=== PATIENT | female | born 1965 | race Caucasian/White ===

== ENCOUNTER 2018-02-05 17:37 | Inpatient (IN) | payer OTHER ==
[~2018-02-05] VITALS: Ht 160 cm; Wt 110.2 kg
[2018-02-05] MEDS ORDERED: Z GUARD REMEDY PASTE 57 GM TUBE TOP PRN (17:45)
[2018-02-05] MEDS ORDERED: ASPI-612 PO (18:04)
[2018-02-05] MEDS ORDERED: ACET-2154 PO (18:04)
[2018-02-05] MEDS ORDERED: CITA20TA19 PO (18:04)
[2018-02-05] MEDS ORDERED: ATOR20TA PO (18:04)
[2018-02-05] MEDS ORDERED: BISA-79 PO (18:04)
[2018-02-05] MEDS ORDERED: DOCU100C36 PO (18:04)
[2018-02-05] MEDS ORDERED: QUET50TA PO (18:04)
[2018-02-05] MEDS ORDERED: MAG355OR18 PO (18:04)
[2018-02-05] MEDS ORDERED: FLUT16SP NS (18:04)
[2018-02-05] MEDS ORDERED: OXYC5TAB3 PO (18:04)
[2018-02-05] MEDS ORDERED: OMEP20CA10 PO (18:04)
[2018-02-05] MEDS ORDERED: TRAZ-214 PO (18:04)
--- NOTE | 2018-02-05 18:08 | NUR ---
Patient came at around 5pm via stretcher with 2 EMT in stable condition. Diagnosis of Left knee arthroplasty. On cardiac diet. with left knee wilber. no redness noted. MD Anderson and MD Taylor made aware. not in distress. On oxygen via nasal cannula at 2 lpm. SPO2 -96% will continue monitor
--- NOTE | 2018-02-05 19:50 | NUR ---
Patient refuse test, verbalize 2 years no menstrual period.
[2018-02-05 19:53] VITALS: BP 137/79
[2018-02-05] MEDS: OXYCODONE HCL 5 MG TABLET PO PRN (22:05)
[2018-02-05] MEDS ORDERED: MAG HYDROX/AL HYDROX/SIMETH 30 ML LIQUID UDC PO PRN (23:00)
[2018-02-05] MEDS ORDERED: BISACODYL 5 MG TABLET.DR PO PRN ×2 (23:00)
[2018-02-05] MEDS: QUETIAPINE FUMARATE 25 MG TABLET PO SCH (23:05)
[2018-02-06 06:38] VITALS: BP 133/77
--- NOTE | 2018-02-06 06:51 | NUR ---
PT RESTING COMFORTABLY ON BED, AAOX3, ON O2 2L VIA NC, TOLERATED WELL. DENIES ANY SOB OR DISCOMFORT. ALL NEEDS ANTICIPATED AND ATTENDED. SAFE ENVIRONMENT MAINTAINED AT ALL TIMES, CALL LOZANO WITHIN REACH.
[2018-02-06 07:59] LABS: BASOPHILS # (AUTO) 0.1 K/uL (0.0-8.0); BASOPHILS % (AUTO) 0.9 % (0.0-2.0); EOSINOPHILS # (AUTO) 0.2 K/uL (0.0-0.7); EOSINOPHILS % (AUTO) 2.2 % (0.0-7.0); HEMATOCRIT 38.6 % (31.2-41.9); HEMOGLOBIN 13.3 g/dL (10.9-14.3); MEAN CORPUSCULAR HEMOGLOBIN 31.7 uug (24.7-32.8); MEAN CORPUSCULAR HGB CONC 34 g/dL (32.3-35.6); MEAN CORPUSCULAR VOLUME 92.2 fL (75.5-95.3); MONOCYTES # (AUTO) 0.6 K/uL (2.0-10.0); MONOCYTES % (AUTO) 9.3 % (0.0-11.0); NEUTROPHILS # (AUTO) 5.1 K/uL (1.8-8.9); NEUTROPHILS % (AUTO) 73.6 % (38.5-71.5); PLATELET COUNT (AUTO) 176 K/uL (179-408); RED BLOOD CELL COUNT(AUTO) 4.18 MIL/uL (3.63-4.92); WHITE BLOOD COUNT (AUTO) 6.9 K/uL (3.8-11.8)
[2018-02-06 08:14] LABS: BILIRUBIN,TOTAL 0.9 mg/dL (0.2-1.0); CREATININE 0.6 mg/dL (0.6-1.3); MAGNESIUM 1.9 mg/dL (1.8-2.4); POTASSIUM 4.1 mmol/L (3.5-5.1); TOTAL PROTEIN, SERUM 7.7 g/dL (6.4-8.2)
[2018-02-06 08:17] LABS: THYROID STIMULATING HORMONE 1.485 mIU/mL (0.358-3.740)
[2018-02-06] MEDS: ACETAMINOPHEN 325 MG TABLET PO PRN ×2 (08:29→21:08)
[2018-02-06] MEDS: ASPIRIN 325 MG TABLET PO SCH (08:29)
[2018-02-06] MEDS: CITALOPRAM 20 MG TABLET PO SCH (08:29)
[2018-02-06] MEDS: DOCUSATE SODIUM 100 MG CAPSULE PO SCH ×2 (08:29→16:58)
[2018-02-06] MEDS: OXYCODONE HCL 5 MG TABLET PO PRN ×3 (08:41→22:02)
[2018-02-06] MEDS: FLUTICASONE PROP NASAL SPRAY 16 GM BOTTLE NS SCH ×2 (08:44→21:02)
[2018-02-06] MEDS: PANTOPRAZOLE SODIUM 40 MG TABLET.DR PO SCH (12:48)
[2018-02-06 16:31] VITALS: BP 126/78
--- NOTE | 2018-02-06 17:45 | NUR ---
Patient evaluate by therapy for new admission care. Continue on pain management with good effect for left knee arthroplasty surgery. not in distress. oxycodone IR 5 mg give at around 5pm. will continue monitor
[2018-02-06 19:53] VITALS: BP 121/68
[2018-02-06] MEDS: ATORVASTATIN 20 MG TABLET PO SCH (21:02)
[2018-02-06] MEDS: QUETIAPINE FUMARATE 25 MG TABLET PO SCH (21:02)
[2018-02-06] MEDS: TRAZODONE 100 MG TABLET PO PRN (21:08)
--- NOTE | 2018-02-06 21:08 | NUR ---
given Tylenol and desyrel per patient request ,escorted to the bathroom using walker ,left leg with brace, patient voided tolerated activity back to bed .
[2018-02-07] MEDS: ACETAMINOPHEN 325 MG TABLET PO PRN ×2 (05:42→17:14)
[2018-02-07 06:00] VITALS: BP 126/75
[2018-02-07] MEDS: PANTOPRAZOLE SODIUM 40 MG TABLET.DR PO SCH (06:11)
[2018-02-07 08:00] VITALS: BP 132/78
[2018-02-07] MEDS: OXYCODONE HCL 5 MG TABLET PO PRN ×3 (09:00→20:27)
[2018-02-07] MEDS: ASPIRIN 325 MG TABLET PO SCH (09:01)
[2018-02-07] MEDS: FLUTICASONE PROP NASAL SPRAY 16 GM BOTTLE NS SCH ×2 (09:01→20:22)
[2018-02-07] MEDS: DOCUSATE SODIUM 100 MG CAPSULE PO SCH ×2 (09:02→16:26)
[2018-02-07] MEDS: CITALOPRAM 20 MG TABLET PO SCH (09:02)
[2018-02-07 16:25] VITALS: BP 122/75
--- NOTE | 2018-02-07 20:00 | NUR ---
Received pt aao x 4 in bed, in no acute distress. Pt requesting pain medication and sleeping pill for tonight. Made aware of plan of care. Left knee warm to touch, wrapped and elevated via pillows. Safe environment implemented.
[2018-02-07] MEDS: ATORVASTATIN 20 MG TABLET PO SCH (20:22)
[2018-02-07] MEDS: QUETIAPINE FUMARATE 25 MG TABLET PO SCH (20:23)
[2018-02-07 20:40] VITALS: BP 129/67
[2018-02-07] MEDS: TRAZODONE 100 MG TABLET PO PRN (21:20)
[2018-02-08 05:30] VITALS: BP 146/70
[2018-02-08] MEDS: PANTOPRAZOLE SODIUM 40 MG TABLET.DR PO SCH (06:00)
[2018-02-08] MEDS: ACETAMINOPHEN 325 MG TABLET PO PRN ×2 (06:00→18:12)
--- NOTE | 2018-02-08 06:46 | NUR ---
Pain management provided as ordered. Pt stable and in no distress at this time.
--- NOTE | 2018-02-08 07:05 | NUR ---
Nurse notes; received patient awake, alert and oriented lying on bed on a high kelley's position. no SOB or distress. Assessed for pain. safety precautions observed. Informed of the hourly rounding. Encouraged to use call light whenever assistance is needed for safety. call light and telephone within reach. Will continue to monitor.
[2018-02-08 08:00] VITALS: BP 125/70
[2018-02-08] MEDS: CITALOPRAM 20 MG TABLET PO SCH (08:30)
[2018-02-08] MEDS: ASPIRIN 325 MG TABLET PO SCH (08:31)
[2018-02-08] MEDS: DOCUSATE SODIUM 100 MG CAPSULE PO SCH ×2 (08:31→16:13)
[2018-02-08] MEDS: OXYCODONE HCL 5 MG TABLET PO PRN ×3 (08:31→20:41)
[2018-02-08] MEDS: FLUTICASONE PROP NASAL SPRAY 16 GM BOTTLE NS SCH ×2 (08:31→20:43)
[2018-02-08 16:03] VITALS: BP 133/70
--- NOTE | 2018-02-08 18:21 | NUR ---
Nurse Notes; patient alert and oriented x 4, able to make needs known remained stable throughout the shift with no acute changes noted. no SOB or distress. assessed and reassessed for pain. medicated with pain medications as ordered PRN. patient was noted to have a temperature of 99.9 taken orally x 1 episode. Medicated with Tylenol PRN as ordered. Arianna Montes De Oca NP awaiting for call back. Will continue to monitor. Cooling measures provided. Wound noted to be clean with no s/sx of infection noted. Safety precautions observed. Hourly rounding done. Will endorse accordingly to next shift for continuity of care. Addendum: 02/08/18 at 1835 by NIKKI MUJICA RN RN Rechecked temp with result of 99.2 taken orally. received call back from Roseanna Montes De Oca NP. Informed of the temp with no new order.
--- NOTE | 2018-02-08 19:20 | NUR ---
Received patient in bed. Alert and verbally responsive. Able to make needs known. Denies any pain and discomfort. No acute distress. No SOB. Left knee incision site with wilber are intact. No s/s of infection noted. Kept clean and dry. All needs attended to promptly. Call light within reach. Will continue to monitor.
[2018-02-08 20:35] VITALS: BP 141/64
[2018-02-08] MEDS: QUETIAPINE FUMARATE 25 MG TABLET PO SCH (20:40)
[2018-02-08] MEDS: ATORVASTATIN 20 MG TABLET PO SCH (20:40)
[2018-02-09] MEDS: PANTOPRAZOLE SODIUM 40 MG TABLET.DR PO SCH (06:16)
[2018-02-09 06:54] VITALS: BP 112/73
--- NOTE | 2018-02-09 07:01 | NUR ---
Patient slept comfortably throughout the night. c/o pain last of the left knee last night. Pain medication given x1. Slept through the night. Incision site kept clean and dry. No s/s of infection. No redness. Kept clean and dry. All needs attended to promptly. Call light within reach. Will continue to monitor.
[2018-02-09 08:08] VITALS: BP 119/71
[2018-02-09] MEDS: CITALOPRAM 20 MG TABLET PO SCH (09:06)
[2018-02-09] MEDS: NAPROXEN 500 MG TABLET PO PRN (09:07)
[2018-02-09] MEDS: FLUTICASONE PROP NASAL SPRAY 16 GM BOTTLE NS SCH ×2 (09:07→20:44)
[2018-02-09] MEDS: DOCUSATE SODIUM 100 MG CAPSULE PO SCH ×2 (09:07→16:55)
[2018-02-09] MEDS: ASPIRIN 325 MG TABLET PO SCH (09:07)
[2018-02-09] MEDS: ACETAMINOPHEN 325 MG TABLET PO PRN (14:31)
--- NOTE | 2018-02-09 14:49 | NUR ---
SBAR report received, Pt resting in bed, board updated. Pt assessed, no acute distress, SOB, or pain reported at this time, requesting Tylenol for slight headache, administered per PRN orders. PRN pain medication administered x1 this shift. Pt cooperative with morning medication administration. Pt showered, linens changed, and assisted back to bed. Left knee sx incision dry and clean, no s/s of infection, wilber intact, dressing changed and wrapped. Pt compliant with CPM machine. All safety and comfort needs implemented, bed in locked and lowest position, with side rails upx2. Call light and personal belongings placed within reach. Will continue to monitor.
--- NOTE | 2018-02-09 15:56 | NUR ---
INTERDISCIPLINARY TEAM CONFERENCE
[2018-02-09 16:06] VITALS: BP 122/67
[2018-02-09 19:30] VITALS: BP 127/58
--- NOTE | 2018-02-09 20:11 | NUR ---
SBAR report received. aaox 4. OOB with walker to the BR. Voiding freely. needs attended. left knee dressing clean dry and intact. on pain management. denies any pain at this time. making needs known. VSS. no acute distress noted. BM noted this shift. will monitor patient.
[2018-02-09] MEDS: ATORVASTATIN 20 MG TABLET PO SCH (20:43)
[2018-02-09] MEDS: QUETIAPINE FUMARATE 25 MG TABLET PO SCH (20:43)
[2018-02-09] MEDS: OXYCODONE HCL 5 MG TABLET PO PRN (20:45)
[2018-02-10 04:00] VITALS: BP 118/65
--- NOTE | 2018-02-10 05:04 | NUR ---
slept well most of the shift. needs attended. voiding well in the BR. no complaints presented during shift. fall precautions maintained.
[2018-02-10] MEDS: PANTOPRAZOLE SODIUM 40 MG TABLET.DR PO SCH (06:45)
[2018-02-10] MEDS: OXYCODONE HCL 5 MG TABLET PO PRN ×2 (06:54→19:42)
[2018-02-10 07:50] VITALS: BP 113/74
[2018-02-10] MEDS: ASPIRIN 325 MG TABLET PO SCH (09:13)
[2018-02-10] MEDS: CITALOPRAM 20 MG TABLET PO SCH (09:13)
[2018-02-10] MEDS: DOCUSATE SODIUM 100 MG CAPSULE PO SCH ×2 (09:13→17:22)
[2018-02-10] MEDS: FLUTICASONE PROP NASAL SPRAY 16 GM BOTTLE NS SCH ×2 (09:13→20:43)
[2018-02-10] MEDS: NAPROXEN 500 MG TABLET PO PRN (11:44)
--- NOTE | 2018-02-10 14:41 | NUR ---
SBAR report received this morning, board updated. Pt assessed, reported pain 6/10 to surgical site on left knee r/t ambulating with therapy, Naproxen 500mg 1 tab administered per PRN orders. Pt able to make needs known. Compliant with routine medication administration and therapies as offered. Cooperative with CPM machine. AOx4, VSS, no acute distress or SOB. Left knee surgical site intact, dressing changed, and wrapped with star bandage. Bed locked in lowest position, with side rails up x2. Fall precautions in place. Call light and personal belongings within reach. All safety and comfort needs met. Will continue to monitor for safety.
[2018-02-10 16:06] VITALS: BP 119/63
[2018-02-10] MEDS: ACETAMINOPHEN 325 MG TABLET PO PRN (17:22)
[2018-02-10 19:30] VITALS: BP 113/47
--- NOTE | 2018-02-10 20:06 | NUR ---
SBAR received, board updated. aaox4 ambulates with walker to the BR.Voiding well. complained of left knee pain, oxycodone 5mg po given as needed. will reassess in 30 minutes for relief. needs attended. VSS. kept comfortable. tolerated po meds well. no acute distress noted. fall precautions maintained. left knee dressing clean dry and intact.
[2018-02-10] MEDS: QUETIAPINE FUMARATE 25 MG TABLET PO SCH (20:41)
[2018-02-10] MEDS: ATORVASTATIN 20 MG TABLET PO SCH (20:42)
[2018-02-11 04:00] VITALS: BP 123/67
--- NOTE | 2018-02-11 05:02 | NUR ---
slept well no acute distress noted. quiet night. OOB with walker to the BR. voiding without difficulty. kept clean and dry. Took meds without difficulty. needs attended. VSS. will monitor patient. dressing to left knee .
[2018-02-11] MEDS: PANTOPRAZOLE SODIUM 40 MG TABLET.DR PO SCH (06:17)
--- NOTE | 2018-02-11 07:30 | NUR ---
RECIEVED PT LYING IN BED, AWAKE, ALERT AND ORIENTED X3. ABLE TO MOVE ALL EXTREMETIES WITH LIMITED MOVEMENT ON HER LEFT LEG. DRESSING ON THE LEFT KNEE IS CLEAND DRY AND INTACT. GOOD PEDAL PULSES. PT IS ABLE TO WALK INDEPENDENTLY WITH HER WALKER AND OCCASSIONALLY USING HER CPM MACHINE AT 70DEGREES FOR 1 HOUR AT A TIME. CONDITION IS STABLE.
[2018-02-11 08:08] VITALS: BP 121/60
[2018-02-11] MEDS: ASPIRIN 325 MG TABLET PO SCH (09:39)
[2018-02-11] MEDS: NAPROXEN 500 MG TABLET PO PRN (09:39)
[2018-02-11] MEDS: CITALOPRAM 20 MG TABLET PO SCH (09:39)
[2018-02-11] MEDS: DOCUSATE SODIUM 100 MG CAPSULE PO SCH ×2 (09:39→17:01)
[2018-02-11] MEDS: FLUTICASONE PROP NASAL SPRAY 16 GM BOTTLE NS SCH ×2 (09:39→21:20)
--- NOTE | 2018-02-11 10:30 | NUR ---
PT HAD A SHOWER WITH MINIMAL ASSISTANCE, TOLERATED WELL.
[2018-02-11] MEDS: OXYCODONE HCL 5 MG TABLET PO PRN (14:33)
--- NOTE | 2018-02-11 15:30 | NUR ---
PT HAS A PERMISSION TO GO OUT WITH HER SISTER FROM DR QUEVEDO FOR A FEW HOURS. CONDITION IS STABLE.
--- NOTE | 2018-02-11 18:00 | NUR ---
PT IN GOOD SPIRIT ALL DAY LONG AND VERY COOPERATIVE. MEDICATED FOR PAIN 2X TODAY FOR HER POST LEFT KNEE SURGERY. PT WAS RELIEVED.
[2018-02-11 20:00] VITALS: BP 132/67
--- NOTE | 2018-02-11 20:10 | NUR ---
Start of Shift: A/O x4 Lying on bed watching Tv on R/a lungs clear bilat Left knee wilber intact suture line well proximated Abd pad and star wrap covering Left Knee No s/s of infection. C/o denies of any distress. siderails up, call light within reach.
[2018-02-11] MEDS: TRAZODONE 100 MG TABLET PO PRN (21:19)
[2018-02-11] MEDS: ATORVASTATIN 20 MG TABLET PO SCH (21:19)
[2018-02-11] MEDS: QUETIAPINE FUMARATE 25 MG TABLET PO SCH (21:19)
[2018-02-12 04:00] VITALS: BP 113/63
[2018-02-12] MEDS: PANTOPRAZOLE SODIUM 40 MG TABLET.DR PO SCH (06:20)
--- NOTE | 2018-02-12 06:27 | NUR ---
Lying bed awake Denies of any distress throughout the shift slept 7 hours. Siderails up Call light within reach.
[2018-02-12] MEDS: DOCUSATE SODIUM 100 MG CAPSULE PO SCH ×2 (08:35→16:10)
[2018-02-12] MEDS: ASPIRIN 325 MG TABLET PO SCH (08:38)
[2018-02-12] MEDS: OXYCODONE HCL 5 MG TABLET PO PRN ×2 (08:38→16:10)
[2018-02-12] MEDS: CITALOPRAM 20 MG TABLET PO SCH (08:38)
[2018-02-12] MEDS: FLUTICASONE PROP NASAL SPRAY 16 GM BOTTLE NS SCH ×2 (08:39→20:27)
[2018-02-12 11:15] VITALS: BP 123/44
--- NOTE | 2018-02-12 12:35 | NUR ---
SBAR report received, board updated. Pt assessed, reports pain upon ambulation, no acute distress noted. PRN pain medication administered per MD orders. Pt compliant with all routine morning medications. VSS. Pt reports BM this morning. Left knee surgical incision healing well, wilber intact, no s/s of infection, dressing changed. Bed in locked and lowest position with side rails up x2. Fall precautions in place. All comfort and safety needs attended to at this time. Spoke with Pt regarding plan of care. Call light and personal belongings placed within reach. Will continue to monitor.
[2018-02-12 15:54] VITALS: BP 126/65
[2018-02-12 19:30] VITALS: BP 122/5
[2018-02-12] MEDS: QUETIAPINE FUMARATE 25 MG TABLET PO SCH (20:27)
[2018-02-12] MEDS: ATORVASTATIN 20 MG TABLET PO SCH (20:27)
[2018-02-12] MEDS: NAPROXEN 500 MG TABLET PO PRN (20:27)
--- NOTE | 2018-02-12 21:26 | NUR ---
Received pt at beginning of shift in bed, watching television. A/O x 4. No acute distress noted. Verbally responsive and able to make needs known. C/O mild pain 4/10 pain scale on left knee. PRN pain medication given per md order. Tolerated well. No acute distress. All safety measures and fall precautions maintained. Call light and all personal belongings within reach. Will continue to monitor.
[2018-02-13 04:00] VITALS: BP 109/61
[2018-02-13] MEDS: PANTOPRAZOLE SODIUM 40 MG TABLET.DR PO SCH (06:32)
[2018-02-13] MEDS: ASPIRIN 325 MG TABLET PO SCH (08:56)
[2018-02-13] MEDS: DOCUSATE SODIUM 100 MG CAPSULE PO SCH ×2 (08:56→16:39)
[2018-02-13] MEDS: FLUTICASONE PROP NASAL SPRAY 16 GM BOTTLE NS SCH ×2 (08:56→21:24)
[2018-02-13] MEDS: OXYCODONE HCL 5 MG TABLET PO PRN ×2 (08:56→17:41)
[2018-02-13] MEDS: CITALOPRAM 20 MG TABLET PO SCH (08:56)
--- NOTE | 2018-02-13 09:36 | NUR ---
Received patient, awake, alert x4. With pain over left knee rated as 8/10. PRN pain medications given. Not in any from of distress.
[2018-02-13] MEDS: NAPROXEN 500 MG TABLET PO PRN (12:57)
--- NOTE | 2018-02-13 13:10 | NUR ---
Went out on pass for Ortho appointment accompanied by ambulance per brian. Vital signs stable. Naproxen 500 mg PRN given.
[2018-02-13 14:00] VITALS: BP 119/64
--- NOTE | 2018-02-13 15:15 | NUR ---
Back from Ortho appointment. No pain noted. Dr. Amanda recommending discharge for tomorrow. Informed manager of case. Donna removed. Steri-strips in place.
[2018-02-13 15:35] VITALS: BP 123/64
[2018-02-13 20:00] VITALS: BP 144/51
[2018-02-13] MEDS: ATORVASTATIN 20 MG TABLET PO SCH (21:24)
[2018-02-13] MEDS: QUETIAPINE FUMARATE 25 MG TABLET PO SCH (21:24)
[2018-02-13] MEDS: ACETAMINOPHEN 325 MG TABLET PO PRN (21:34)
--- NOTE | 2018-02-14 05:30 | NUR ---
slept most of the shift. OOB to the BR with walker. fall precautions maintained. siderails up for safety, denies any pain at this time. will monitor patient.
[2018-02-14] MEDS: PANTOPRAZOLE SODIUM 40 MG TABLET.DR PO SCH (06:26)
[2018-02-14 07:00] VITALS: BP 95/43
--- NOTE | 2018-02-14 07:30 | NUR ---
Pt.sleeping,no s/s distress or pain noted.
[2018-02-14] MEDS: OXYCODONE HCL 5 MG TABLET PO PRN (09:15)
[2018-02-14] MEDS: DOCUSATE SODIUM 100 MG CAPSULE PO SCH (09:15)
[2018-02-14] MEDS: ASPIRIN 325 MG TABLET PO SCH (09:15)
[2018-02-14] MEDS: CITALOPRAM 20 MG TABLET PO SCH (09:15)
[2018-02-14] MEDS: FLUTICASONE PROP NASAL SPRAY 16 GM BOTTLE NS SCH (09:16)
--- NOTE | 2018-02-14 11:50 | NUR ---
Discharge order obtained from Dr. Anderson. Dr. Taylor aware of discharge, prescriptions for home medications done by Dr. Taylor.
--- NOTE | 2018-02-14 13:21 | NUR ---
Pt.watching TV,no s/s of distress,denies pain @ time.
--- NOTE | 2018-02-14 15:00 | NUR ---
Discharge in stable condition, vital signs WNL. Not in any pain. Discharge instructions given to patient. Instructed to take medications as prescribed. Instructed to follow up with Dr Amanda on 03/13/18 at 13:15. Routine discharge care done. Went home per private transport accompanied by sister Hernandez.
== END 2018-02-14 15:00 | disposition home health service (06) | DRG 560 ==
PROVIDERS: ADMIT Physical Medicine & Rehabilitation Pain Medicine; ATTEND Physical Medicine & Rehabilitation Pain Medicine
DX: Z47.1 Aftercare following joint replacement surgery (principal); D68.59 Other primary thrombophilia; Z68.41 Body mass index [BMI] 40.0-44.9, adult; Z96.652 Presence of left artificial knee joint; E66.01 Morbid (severe) obesity due to excess calories; E78.5 Hyperlipidemia, unspecified; F31.9 Bipolar disorder, unspecified; G47.33 Obstructive sleep apnea (adult) (pediatric); G89.29 Other chronic pain; J45.909 Unspecified asthma, uncomplicated; K21.9 Gastro-esophageal reflux disease without esophagitis; M19.90 Unspecified osteoarthritis, unspecified site; G47.00 Insomnia, unspecified
CPT/HCPCS: 36415; 82652; 83735; 84100; 84443; 85025; 92523; 92526; 92610; 97110; 97112; 97116; 97530; 97535; A4663; J3535